=== PATIENT | female | born 1955 | race Two or more races ===

== ENCOUNTER 2019-01-14 12:15 | Inpatient (IN) | payer MEDICAID ==
[~2019-01-14] VITALS: Ht 170.2 cm; Wt 66.1 kg
[~2019-01-14 12:15] MED LIST: CITA-73 PO; CYCL1TAB18 PO; DIAZ10TA3 PO; DIPH25CA46 PO; GABA300C10 PO; HYDR-4833 PO; IBUP800T24 PO; LAMO100T44 PO; LEVO125T7 PO; LOSA25TA38 PO; NITR0.4S29 SL; SERDISK IN; SIMV10TA84 PO
[2019-01-14] MEDS ORDERED: DIAZEPAM 5 MG TAB PO ONE (13:15)
[2019-01-14 13:21] LABS: Basophils # (auto) 0.1 uL; Basophils % (auto) 0.9 % (0.0-2.0); Eosinophils # (auto) 0.2 uL; Eosinophils % (auto) 1.7 % (0.0-7.0); Hematocrit 42.8 % (36.0-46.0); Hemoglobin 14.7 g/dL (12.2-16.2); Lymphocytes # (auto) 1.7 uL; Mean Corpuscular Hemoglobin 32.2 pg (28.0-32.0); Mean Corpuscular Hgb Conc. 34.4 g/dL (32.0-36.0); Mean Corpuscular Volume 93.7 fL (80.0-100.0); Monocytes # (auto) 0.5 uL; Monocytes % (auto) 5.1 % (0.0-12.0); Neutrophils # (auto) 6.9 uL; Neutrophils % (auto) 74.3 % (37.0-80.0); Platelet Count (auto) 240 10^3/uL (140-450); Red Blood Cells 4.57 10^6/uL (4.0-5.20); Red Cell Distribution Width 12.8 % (11.8-14.3); White Blood Cell 9.3 10^3/uL (4.4-10.8)
[2019-01-14 13:36] LABS: INR < 0.93 (0.9-1.15); Partial Thromboplastin Time 25.4 sec (23.64-32.05)
[2019-01-14 13:47] LABS: Albumin 3.6 g/dL (3.4-5.0); Anion Gap 6 (5-15); Blood Urea Nitrogen 22 mg/dL (7-18); Carbon Dioxide 25 mmol/L (21-32); Chloride 110 mmol/L (98-107); Glucose 138 mg/dL (74-106); Potassium 3.5 mmol/L (3.5-5.1); Sodium 141 mmol/L (136-145)
[2019-01-14 13:53] LABS: Alanine Aminotransferase 26 U/L (13-56); Alkaline Phosphatase 67 U/L (45-117); Aspartate Aminotransferase 15 U/L (15-37); BUN/Creatinine Ratio 28.2; Bilirubin, Total 0.4 mg/dL (0.2-1.0); GFR African American 96 mL/min; GFR Non-African American 80 mL/min; Total Protein 6.4 g/dL (6.4-8.2)
[2019-01-14] MEDS ORDERED: MORPHINE SULF INJ 2 MG/ML SYRINGE 1ML IV PRN (17:30)
[2019-01-14] MEDS ORDERED: NITROGLYCERIN 0.4 MG SL TAB SL PRN ×2 (17:30→18:00)
[2019-01-14] MEDS ORDERED: LORazepam 0.5 MG TAB PO PRN (18:00)
[2019-01-14] MEDS ORDERED: ALUM & MAG HYDROX-SIMETH LIQ(MAALOX) 30 ML PO ONE (18:00)
[2019-01-14] MEDS ORDERED: KETOROLAC TROMETH 30 MG/ML 1ML VIAL IV PRN (18:00)
--- NOTE | 2019-01-14 20:45 | NUR ---
Opening note Received patient from ER. No report received. Patient at this time showing no sign of distress, shortness of breath, but patient does state having residual chest pain at 4/10. Patient provided food at this time and patient resting comfortably. Patient educated on plan of care for the night and patient verbalized understanding. Bed lowered, call light within reach, and patient will be rounded on every hour and as needed.
[2019-01-14] MEDS ORDERED: VITAMINS A & D (TOPICAL) OINT 5GM TOP PRN (21:00)
[2019-01-14 21:49] VITALS: BP 151/72
[2019-01-14] MEDS: lamoTRIgine 25 MG TAB PO SCH (21:59)
[2019-01-14] MEDS: MUPIROCIN 2% OINT 15gm or 22gm TOP SCH (22:00)
[2019-01-14] MEDS ORDERED: ATORVASTATIN 20 MG TAB PO SCH ×2 (22:00)
[2019-01-14] MEDS: METOPROLOL TARTRATE 25 MG TAB PO SCH (22:02)
[2019-01-14] MEDS: GABAPENTIN 300 MG CAP PO SCH (22:03)
[2019-01-14] MEDS: CYCLOBENZAPRINE HCL 10 MG TAB PO SCH (22:04)
[2019-01-14 23:07] VITALS: BP 151/76
[2019-01-15 04:46] VITALS: BP 136/76
[2019-01-15 06:11] LABS: Basophils # (auto) 0.1 uL; Basophils % (auto) 1.8 % (0.0-2.0); Eosinophils # (auto) 0.3 uL; Eosinophils % (auto) 4.2 % (0.0-7.0); Hematocrit 41.9 % (36.0-46.0); Hemoglobin 14.5 g/dL (12.2-16.2); Lymphocytes # (auto) 2.1 uL; Lymphocytes % (auto) 32.6 % (10.0-50.0); Mean Corpuscular Hemoglobin 32.4 pg (28.0-32.0); Mean Corpuscular Hgb Conc. 34.6 g/dL (32.0-36.0); Mean Corpuscular Volume 93.8 fL (80.0-100.0); Monocytes # (auto) 0.3 uL; Monocytes % (auto) 5.5 % (0.0-12.0); Neutrophils # (auto) 3.5 uL; Neutrophils % (auto) 55.9 % (37.0-80.0); Platelet Count (auto) 225 10^3/uL (140-450); Red Blood Cells 4.47 10^6/uL (4.0-5.20); Red Cell Distribution Width 12.8 % (11.8-14.3); White Blood Cell 6.3 10^3/uL (4.4-10.8)
[2019-01-15] MEDS: GABAPENTIN 300 MG CAP PO SCH ×2 (06:13→14:43)
[2019-01-15] MEDS: CYCLOBENZAPRINE HCL 10 MG TAB PO SCH ×2 (06:13→14:44)
[2019-01-15] MEDS ORDERED: LEVOTHYROXINE SODIUM 50 MCG TAB PO SCH (07:00)
[2019-01-15 07:10] LABS: Chloride 113 mmol/L (98-107); Potassium 3.6 mmol/L (3.5-5.1); Sodium 145 mmol/L (136-145)
[2019-01-15 07:19] LABS: Alanine Aminotransferase 24 U/L (13-56); Albumin 3.2 g/dL (3.4-5.0); Alkaline Phosphatase 57 U/L (45-117); Anion Gap 6 (5-15); Aspartate Aminotransferase 16 U/L (15-37); BUN/Creatinine Ratio 27.9; Bilirubin, Total 0.5 mg/dL (0.2-1.0); Blood Urea Nitrogen 19 mg/dL (7-18); Calcium 8.4 mg/dL (8.5-10.1); Carbon Dioxide 26 mmol/L (21-32); Cholesterol 116 mg/dL (< 200); Creatine Kinase IFCC 70 U/L (26-192); GFR African American 113 mL/min; GFR Non-African American 93 mL/min; Glucose 95 mg/dL (74-106); HDL Cholesterol 44 mg/dL (40-59); LDL Cholesterol 57 mg/dL (< 100); Magnesium 2.3 mg/dL (1.6-2.6); Phosphorus 4.1 mg/dL (2.5-4.90); Total Protein 5.8 g/dL (6.4-8.2); Triglycerides 148 mg/dL (< 150)
[2019-01-15 08:00] VITALS: BP 135/78
[2019-01-15 09:00] VITALS: BP 128/67
[2019-01-15] MEDS ORDERED: ENOXAPARIN SOD 40 MG/0.4 ML SYRINGE SC SCH (10:00)
[2019-01-15] MEDS ORDERED: CITALOPRAM HYDROBR 20 MG TAB PO SCH (10:00)
[2019-01-15] MEDS ORDERED: LOSARTAN POTASSIUM 25 MG TAB PO SCH (10:00)
[2019-01-15] MEDS ORDERED: ASPirin 81 mg TAB PO SCH (10:00)
[2019-01-15] MEDS ORDERED: DOCUSATE SOD 100 MG CAP PO SCH (10:00)
--- NOTE | 2019-01-15 10:00 | NUR ---
assessment re: ss consult Patient is a 63 year old female who is alert and oriented. Patients cognitive abilities are intact. Prior to admission patient lived home with a friend and functioned with assistance. Per patient she will return home to her prior living arrangements post discharge and family will transport her home. Patient informed me she has a fww for home use. I informed patient she has a ss consult that she is requesting home health. I asked patient what she needs home health for and she informed me she never asked for home health and does not need or want home health. I informed patient she has a right to speak to a certified social workers in health care regarding all care. I informed patient she has a right to participate in any and all discharge planning. Patient does not have a POA and advanced directive. I have offered patient information on POA and advanced directives. I informed the patient the advantages and benefits of having an Advanced Directive. Patient verbalized understanding and agreed to discharge plan. Addendum: 01/17/19 at 1640 by Olga BANKS Amended: Links added.
[2019-01-15] MEDS: lamoTRIgine 25 MG TAB PO SCH (10:52)
[2019-01-15] MEDS: METOPROLOL TARTRATE 25 MG TAB PO SCH (10:53)
[2019-01-15] MEDS: MUPIROCIN 2% OINT 15gm or 22gm TOP SCH (10:56)
[2019-01-15 12:24] VITALS: BP 125/75
[2019-01-15 14:06] VITALS: BP 125/75
== END 2019-01-15 15:00 | disposition home or self-care (01) | DRG 198 ==
LOC: EDBD 12:15 → ER 12:19 → TELE 12:20 → TELE-EAST 20:26
PROVIDERS: ADMIT Hospitalist; ATTEND Hospitalist
DX: R07.9 Chest pain, unspecified (principal); I25.10 Atherosclerotic heart disease of native coronary artery without angina pectoris; I11.0 Hypertensive heart disease with heart failure; I50.9 Heart failure, unspecified; J44.9 Chronic obstructive pulmonary disease, unspecified; F31.30 Bipolar disorder, current episode depressed, mild or moderate severity, unspecified; E89.0 Postprocedural hypothyroidism; F17.210 Nicotine dependence, cigarettes, uncomplicated; F41.9 Anxiety disorder, unspecified; E78.5 Hyperlipidemia, unspecified; Z88.1 Allergy status to other antibiotic agents; Z85.850 Personal history of malignant neoplasm of thyroid; Z98.51 Tubal ligation status; Z82.49 Family history of ischemic heart disease and other diseases of the circulatory system; Z79.899 Other long term (current) drug therapy; Z82.5 Family history of asthma and other chronic lower respiratory diseases; Z83.3 Family history of diabetes mellitus; Z83.49 Family history of other endocrine, nutritional and metabolic diseases; Z83.79 Family history of other diseases of the digestive system
CPT/HCPCS: 36415; 71045; 80053; 80061; 82550; 83036; 83735; 83880; 84100; 84443; 84484; 85025; 85610; 85730; 93005; 94761; G0378

== ENCOUNTER 2020-04-06 10:06 | Emergency (ER) | payer MEDICAID ==
[~2020-04-06] VITALS: Ht 154.9 cm; Wt 68.0 kg
[~2020-04-06 10:06] MED LIST changes: +CYCL10TA6 PO; -CYCL1TAB18 PO
[2020-04-06 11:10] LABS: Basophils # (auto) 0.1 10 ^3/uL (0-0.2); Basophils % (auto) 1.4 % (0.0-2.0); Eosinophils # (auto) 0.4 10 ^3/uL (0-0.8); Eosinophils % (auto) 4.6 % (0.0-7.0); Hematocrit 43.7 % (36.0-46.0); Hemoglobin 15.2 g/dL (12.2-16.2); Lymphocytes # (auto) 2.1 10 ^3/uL (0.4-5.4); Lymphocytes % (auto) 23.4 % (10.0-50.0); Mean Corpuscular Hemoglobin 32.3 pg (28.0-32.0); Mean Corpuscular Hgb Conc. 34.8 g/dL (32.0-36.0); Mean Corpuscular Volume 92.7 fL (80.0-100.0); Monocytes # (auto) 0.5 10 ^3/uL (0-1.3); Monocytes % (auto) 5.1 % (0.0-12.0); Neutrophils % (auto) 65.5 % (37.0-80.0); Platelet Count (auto) 310 10^3/uL (140-450); Red Blood Cells 4.71 10^6/uL (4.0-5.20); Red Cell Distribution Width 12.9 % (11.8-14.3); White Blood Cell 9.2 10^3/uL (4.4-10.8)
[2020-04-06 11:24] LABS: Albumin 3.7 g/dL (3.4-5.0); Anion Gap 5 (5-15); Calcium 8.8 mg/dL (8.5-10.1); Carbon Dioxide 26 mmol/L (21-32); Chloride 107 mmol/L (98-107); Glucose 115 mg/dL (74-106); Potassium 4.2 mmol/L (3.5-5.1); Sodium 138 mmol/L (136-145)
[2020-04-06 11:31] LABS: Alanine Aminotransferase 49 U/L (13-56); Alkaline Phosphatase 138 U/L (45-117); Aspartate Aminotransferase 18 U/L (15-37); BUN/Creatinine Ratio 28.2; Bilirubin, Total 0.5 mg/dL (0.2-1.0); Blood Urea Nitrogen 24 mg/dL (7-18); GFR African American 87 mL/min; GFR Non-African American 72 mL/min; Total Protein 7.4 g/dL (6.4-8.2)
[2020-04-06 11:35] VITALS: BP 142/59
== END 2020-04-06 17:00 | disposition home or self-care (01) ==
LOC: ER 10:06
DX: R07.89 Other chest pain (principal); J40 Bronchitis, not specified as acute or chronic; F17.210 Nicotine dependence, cigarettes, uncomplicated; I11.0 Hypertensive heart disease with heart failure; I50.9 Heart failure, unspecified; J44.9 Chronic obstructive pulmonary disease, unspecified; E11.9 Type 2 diabetes mellitus without complications; E78.5 Hyperlipidemia, unspecified; Z98.51 Tubal ligation status
CPT/HCPCS: 36415; 71045; 80053; 84484; 85025; 93005